=== PATIENT | male | born 1980 | race African-American/Black ===

== ENCOUNTER 2024-03-10 15:44 | Emergency (ER) | payer BC ==
[2024-03-10] MEDS ORDERED: Lidocaine 1% w/Epinephrine 1:200K 30 ML VIAL ONE (17:42)
[2024-03-10] MEDS ORDERED: Ketorolac Tromethamine 30 MG (1 mL) VIAL ONE (17:47)
== END 2024-03-10 19:41 | disposition home or self-care (01) ==
LOC: CSHERS 15:44
DX: T78.40XA Allergy, unspecified, initial encounter (principal); L02.01 Cutaneous abscess of face; F17.210 Nicotine dependence, cigarettes, uncomplicated; W57.XXXA Bitten or stung by nonvenomous insect and other nonvenomous arthropods, initial encounter
CPT/HCPCS: 96372; 99282; J1885